=== PATIENT | female | born 2000 | race Caucasian/White ===

== ENCOUNTER 2021-02-08 16:38 | Outpatient (REF) | payer OTHER, SELFPAY ==
--- NOTE | 2021-02-08 14:20 | CER_PTH ---
PATIENT: Jordon Copeland LOC: [facility] U#:[id number] AGE/SX: 20/F ROOM: RE02/08/[address]: Sil Marques MD : 2000 BED: DIS: 02/08/2021 SPEC #: [id number] RECD: 02/08/21 16:57 STATUS: KAVEH MARTINEZ #: [id number] MARIO ALBERTO: 02/08/21 14:[address]: Sil Marques DEPT: Surgical Specimen RECD BY: Rylie Sebastian ENTERED: 02/08/21 16:58 SP TYPE: HOLA ESPINAL DR: Unknown,Unknown Tissues: F - CERVICAL BIOPSY 1 - ENDOCERVICAL BX/CURRETTE 2 - ENDOMETRIUM BX/CURRETTE Procedures: GROSS AND MICRO LEVEL 4 Comments: [id number] (#2 & #3 - TISSUE DID NOT SURVIVE PROCESSING)
== END 2021-02-08 16:39 | disposition home or self-care (01) ==
LOC: LBN 16:38
PROVIDERS: Visit Provider Obstetrics & Gynecology
DX: R87.619 Unspecified abnormal cytological findings in specimens from cervix uteri (principal)
CPT/HCPCS: 88305

== ENCOUNTER 2021-02-21 09:58 | Outpatient (REF) | payer OTHER, SELFPAY ==
--- NOTE | 2021-02-21 08:50 | CER_PTH ---
PATIENT: Jordon Copeland LOC: [facility] U#:[id number] AGE/SX: 20/F ROOM: RE02/21/[address]: Sil Marques MD : 2000 BED: DIS: 02/21/2021 SPEC #: [id number] RECD: 02/21/21 12:53 STATUS: KAVEH REPedro #: [id number] MARIO ALBERTO: 02/21/21 08:[address]: Sil Marques DEPT: Surgical Specimen RECD BY: Rylie Sebastian ENTERED: 02/21/21 12:55 SP TYPE: HOLA ESPINAL DR: Unknown,Unknown Tissues: 1 - CERVICAL BIOPSY 2 - ENDOCERVICAL BX/CURRETTE 3 - ENDOMETRIUM BX/CURRETTE Procedures: GROSS AND MICRO LEVEL 4 Comments: [id number]
== END 2021-02-21 09:59 | disposition home or self-care (01) ==
LOC: LBN 09:58
PROVIDERS: Visit Provider Obstetrics & Gynecology
DX: R87.619 Unspecified abnormal cytological findings in specimens from cervix uteri (principal)
CPT/HCPCS: 88305

== ENCOUNTER 2022-02-15 15:17 | Outpatient (REF) | payer OTHER, SELFPAY ==
--- NOTE | 2022-02-15 14:00 | PAPFT_PTH ---
PATIENT: Jordon Copeland LOC: [facility] U#:[id number] AGE/SX: 21/F ROOM: RE02/15/[address]: Sil Marques MD : 2000 BED: DIS: 02/15/2022 SPEC #: [id number] RECD: 02/18/22 12:51 STATUS: KAVEH REPedro #: [id number] MARIO ALBERTO: 02/15/22 14:[address]: Sil Marques DEPT: [facility] Cytology RECD BY: Rylie Sebastian Tissues: 1 - CX/ENDOCX FOR PAP SMEARS Procedures: PAP THIN PREP/[facility] Screening Comments: [id number]
== END 2022-02-15 15:18 | disposition home or self-care (01) ==
LOC: LBN 15:17
PROVIDERS: Visit Provider Obstetrics & Gynecology
DX: Z12.4 Encounter for screening for malignant neoplasm of cervix (principal)
CPT/HCPCS: 88142